=== PATIENT | female | born 1975 | race Caucasian/White ===

== ENCOUNTER 2017-01-17 18:50 | Emergency (ER) | payer OTHER ==
[~2017-01-17] VITALS: Ht 162.5 cm; Wt 101.6 kg
[~2017-01-17 18:50] MED LIST: COLACE100 MG PO; FERROUS FUMARA325 MG PO; MOTRIN 800 MG E4 TAB PO; PRENATAL1 TA1 PO; ULTRAM50 MG PO
[2017-01-17] MEDS ORDERED: Motrin,Rufen800 MG PO (20:47)
== END 2017-01-17 20:34 | disposition home or self-care (01) ==
LOC: ED 18:50
DX: M54.10 Radiculopathy, site unspecified (principal); M54.2 Cervicalgia; M25.511 Pain in right shoulder

== ENCOUNTER 2018-06-29 16:06 | Emergency (ER) | payer OTHER ==
[~2018-06-29] VITALS: Wt 90.7 kg
--- NOTE | ~2018-06-29 | EKG ---
[place], [place] ELECTROCARDIOGRAM REPORT NAME: AJ BETANCOURT UNIT #: [id number] ROOM: DOCTOR: EPIPHANY DRAFT REPORT BIRTHDATE: [birth year] [facility] Test Date: 2018-06-29 Test Time: 16:17:32 Pat Name: AJ BETANCOURT Department: Room: Gender: F Claims Representative: Lanette Richard : 1975 Requested By: ODALIS MENDOZA Order Number: [id number] Reading MD: Loni Nguyễn MD Measurements Intervals [place] Rate: 84 P: 0 CA: 147 QRS: -12 QRSD: 78 T: -29 QT: 391 QTc: 463 Interpretive Statements Sinus rhythm Borderline T abnormalities, diffuse leads Electronically Signed On 06-30-2018 15:48:23 PDT by Loni Nguyễn MD CM:EKGRPT:ELECTROCARDIOGRAM REPORT [id number] ODALIS WRIGHT DRAFT REPORT ODALIS MENDOZA M.D.
--- NOTE | ~2018-06-29 | EKG ---
[place], [place] ELECTROCARDIOGRAM REPORT NAME: AJ BETANCOURT UNIT #: [id number] ROOM: DOCTOR: EPIPHANY DRAFT REPORT BIRTHDATE: [birth year] [facility] Test Date: 2018-06-29 Test Time: 19:03:31 Pat Name: AJ BETANCOURT Department: Room: Gender: F Event Coordinator: Yair Vick : 1975 Requested By: ODALIS MENDOZA Order Number: [id number] Reading MD: Loni Nguyễn MD Measurements Intervals [place] Rate: 74 P: -4 MN: 146 QRS: -2 QRSD: 82 T: -44 QT: 439 QTc: 487 Interpretive Statements Sinus rhythm Borderline T abnormalities, diffuse leads Borderline prolonged QT interval Electronically Signed On 06-30-2018 15:51:55 PDT by Loni Nguyễn MD CM:EKGRPT:ELECTROCARDIOGRAM REPORT [id number] ODALIS WRIGHT DRAFT REPORT ODALIS MENDOZA M.D.
[~2018-06-29 16:06] MED LIST changes: +Motrin,Rufen800 MG PO
[2018-06-29] MEDS ORDERED: CITALOPRAM20 MG PO (16:19)
[2018-06-29 17:01] LABS: BASO # 0.1 10*3/uL (0.0-0.1); BASO % 0.7 % (0.0-1.0); EOS # 0.1 10*3/uL (0.0-0.4); EOS % 0.9 % (1.0-4.0); HEMATOCRIT 41.4 % (37.0-47.0); LYMPH % 28.7 % (27.0-41.0); MEAN CELL VOLUME 83.5 fl (81.0-99.0); MEAN CORPUSCULAR HGB 28.2 pg (27.0-31.0); MEAN CORPUSCULAR HGB CONC 33.8 g/dl (33.0-37.0); MEAN PLATELET VOLUME 9.5 fl (9.6-12.3); MONO # 0.8 10*3/uL (0.1-1.0); MONO % 7.5 % (3.0-9.0); NEUT # 6.5 10*3/uL (2.3-7.9); NEUT % 61.8 % (47.0-73.0); PLATELET COUNT AUTOMATED 254 10*3/uL (130-400); RED BLOOD COUNT 4.96 10*6/uL (4.10-5.10); RED CELL DISTRI WIDTH 13.5 % (0-14.5); WHITE BLOOD COUNT 10.5 10*3/uL (4.8-10.8)
[2018-06-29 17:11] LABS: ACT PARTIAL THROMBO TIME 24.2 SECONDS (20.8-31.5)
[2018-06-29 17:34] LABS: ALBUMIN 3.4 gm/dl (3.1-4.5); ALKALINE PHOSPHATASE 56 U/L (45-117); BUN 11 mg/dl (7-24); CHLORIDE 101 mmol/L (98-107); CREATININE 0.92 mg/dL (0.55-1.02); POTASSIUM 3.3 mmol/L (3.5-5.1); SGOT/AST 21 IU/L (3-35); SGPT/ALT 22 U/L (12-78); SODIUM 139 mmol/L (136-145); TOTAL PROTEIN 7.7 gm/dL (6.4-8.2)
[2018-06-29 17:40] LABS: TROPONIN I < 0.015 ng/ml (<0.045)
== END 2018-06-29 19:07 | disposition home or self-care (01) ==
LOC: ED 16:06
PROVIDERS: Emergency Medicine
DX: F41.9 Anxiety disorder, unspecified (principal); R07.9 Chest pain, unspecified; M25.512 Pain in left shoulder; E78.00 Pure hypercholesterolemia, unspecified; I10 Essential (primary) hypertension; Z79.899 Other long term (current) drug therapy

== ENCOUNTER 2019-06-15 01:57 | Inpatient (IN) | payer BC ==
[~2019-06-15] VITALS: Ht 162.6 cm; Wt 105.5 kg
[2019-06-15] VITALS (13 sets, daily range): BP systolic 138–194; BP diastolic 84–110
[~2019-06-15 01:57] MED LIST changes: +CITALOPRAM20 MG PO
[2019-06-15 02:27] LABS: BASO # 0.1 10*3/uL (0.0-0.1); BASO % 0.8 % (0.0-1.0); EOS # 0.1 10*3/uL (0.0-0.4); EOS % 1.6 % (1.0-4.0); HEMATOCRIT 42.7 % (37.0-47.0); HEMOGLOBIN 14.3 g/dl (12.0-16.0); LYMPH # 3.5 10*3/uL (1.3-4.4); LYMPH % 39.2 % (27.0-41.0); MEAN CELL VOLUME 86.8 fl (81.0-99.0); MEAN CORPUSCULAR HGB 29.1 pg (27.0-31.0); MEAN CORPUSCULAR HGB CONC 33.5 g/dl (33.0-37.0); MEAN PLATELET VOLUME 9.3 fl (9.6-12.3); MONO # 0.9 10*3/uL (0.1-1.0); NEUT # 4.3 10*3/uL (2.3-7.9); NEUT % 48.1 % (47.0-73.0); PLATELET COUNT AUTOMATED 241 10*3/uL (130-400); RED BLOOD COUNT 4.92 10*6/uL (4.10-5.10); RED CELL DISTRI WIDTH 13.3 % (0-14.5); WHITE BLOOD COUNT 8.9 10*3/uL (4.8-10.8)
[2019-06-15 02:42] LABS: ACT PARTIAL THROMBO TIME 26.5 SECONDS (20.0-32.1)
[2019-06-15 02:48] LABS: ALBUMIN 3.4 gm/dl (3.1-4.5); ALKALINE PHOSPHATASE 57 U/L (45-117); BUN 10 mg/dl (7-24); CHLORIDE 103 mmol/L (98-107); CREATININE 0.85 mg/dL (0.55-1.02); POTASSIUM 3.1 mmol/L (3.5-5.1); SGOT/AST 19 IU/L (3-35); SGPT/ALT 29 U/L (12-78); SODIUM 138 mmol/L (136-145); TOTAL PROTEIN 7.3 gm/dL (6.4-8.2)
[2019-06-15 02:49] LABS: TROPONIN I < 0.015 ng/ml (<0.045)
--- NOTE | 2019-06-15 05:15 | NUR ---
A 43, admitted to ICCU, under the services of MELQUIADES Rubio DO with a diagnosis of CHEST PAIN. Chief complaint is BLOOD PRESSURE ELEV, NAUSEA, DIZZINESS, PANIC ATTACK. Patient arrived via stretcher from ER. Monitor applied. Initial assessment completed. Vital signs taken and recorded. MELQUIADES RUBIO DO notified of admission to the unit. Orders received. See assessment for past medical history, medications and allergies. Patient and/or family oriented to unit. [facility] visitation policy reviewed. Clothing/patient valuable form completed. MCKAYLA ESPINOZA A
[2019-06-15] MEDS ORDERED: LISINOPRIL2.5 MG PO (05:28)
[2019-06-15] MEDS ORDERED: BUPROPION HCL150 M1 PO (05:28)
[2019-06-15] MEDS ORDERED: BUSPIRONE HCL15 MG PO (05:29)
[2019-06-15] MEDS ORDERED: NORVASC2.5 MG PO (10:10)
--- NOTE | 2019-06-15 11:13 | NUR ---
PATIENT DISCHARGED TO HOME. ALL PERSONAL BELONGINGS SENT WITH PATIENT. IV AND CABIN CLEANER DISCONTINUED. DISCHARGE INSTRUCTIONS GIVEN AND REVIEWED WITH PATIENT. INFORMED PATIENT OF ONE PRESCRIPTION SENT TO [facility].
== END 2019-06-15 11:13 | disposition home or self-care (01) | DRG 880 ==
LOC: ED 01:57 → EDHOLD 03:34 → ICCU 03:34
PROVIDERS: Emergency Medicine; ADMIT Family Medicine
DX: F41.9 Anxiety disorder, unspecified (principal); I16.1 Hypertensive emergency; E44.1 Mild protein-calorie malnutrition; E87.6 Hypokalemia; R73.9 Hyperglycemia, unspecified; E83.41 Hypermagnesemia; E66.09 Other obesity due to excess calories; I10 Essential (primary) hypertension; Z79.899 Other long term (current) drug therapy; Z68.39 Body mass index [BMI] 39.0-39.9, adult; Z83.3 Family history of diabetes mellitus

== ENCOUNTER → 2022-03-27 | Outpatient (CLI) | payer OTHER ==
[~2022-03-27] MED LIST changes: +BUPROPION HCL150 M1 PO; +BUSPIRONE HCL15 MG PO; +LISINOPRIL2.5 MG PO; +NORVASC2.5 MG PO
== END | disposition home or self-care (01) ==
LOC: LAB 10:49
PROVIDERS: ATTEND Family Medicine
DX: E87.6 Hypokalemia (principal)